=== PATIENT | female | born 1990 | race Caucasian/White ===

== ENCOUNTER 2017-08-19 09:20 | Emergency (ER) | payer OTHER, SELFPAY ==
[2017-08-19 09:25] VITALS: BP 126/80; PULSE 88; RESP 14; TEMP 37.1; O2SAT 97
[2017-08-19 09:36] VITALS: BP 107/71; PULSE 58; RESP 14; TEMP 36.4; O2SAT 97
--- NOTE | 2017-08-19 11:31 | ED_ITS ---
HPI - URI/Sore Throat General Chief Complaint: Upper Respiratory Symptoms Stated Complaint: STREP THROAT Time Seen by Provider: 08/19/17 11:30 Source: patient Mode of arrival: ambulatory Limitations: no limitations History of Present Illness HPI Narrative: Patient is a 27-year-old female who presents with a sore throat which started last night. She says it feels like strep she she gets strep once a year. She has not had any fever body aches. She denies cough. MD Complaint: sore throat Related Data Home Medications Medication Instructions Recorded Confirmed No Known Home Medications 08/19/17 08/19/17 Allergies Allergy/AdvReac Type Severity Reaction Status Date / Time hydrocortisone Allergy Intermediate Rash Verified 08/19/17 09:38 Sulfa (Sulfonamide Allergy Intermediate Rash Verified 08/19/17 09:38 Antibiotics) Review of Systems Review of Systems All systems reviewed & are unremarkable except as noted in HPI and below Constitutional Denies chills, Denies fever(s), Denies lethargy and Denies weakness ENT Ears, Nose, Mouth, and Throat: Denies change in voice, Denies neck pain and Reports sore throat Cardiovascular Denies chest pain, Denies irregular heart rhythm, Denies lightheadedness, Denies palpitations, Denies dyspnea, Denies dyspnea on exertion and Denies orthopnea Respiratory Denies cough, Denies dyspnea, Denies dyspnea on exertion and Denies wheezing Musculoskeletal Denies neck pain Integumentary/Breasts Denies pruritus, Denies erythema, Denies rash and Denies wounds Neurologic Denies weakness Endocrine Denies palpitations Allergic/Immunologic Denies wheezing [facility] Social History Smoking Status: Never smoker Exam Initial Vital Signs Initial Vital Signs: Vital Signs Temperature 98.7 F 08/19/17 09:25 Pulse Rate 88 08/19/17 09:25 Respiratory Rate 14 08/19/17 09:25 Blood Pressure 126/80 H 08/19/17 09:25 Pulse Oximetry 97 08/19/17 09:25 Const General: cooperative and well developed Nutritional Appearance: well nourished Orientation: alert, awake, oriented x3 and not confused HENMT Throat: posterior oropharynx normal, tonsils normal and uvula midline Neck Neck: normal visual inspection, trachea midline, No lymphadenopathy, No midline deformity and No JVD Lymphatic: No lymphedema Chest Chest: normal inspection of the chest Resp Effort & Inspection: normal respiratory effort, able to speak in complete sentences, no respiratory distress and no use of accessory muscles Auscultation: clear to auscultation bilaterally, no rales, no rhonchi and no wheezes Cardio Rate: regular rate Rhythm: regular rhythm Heart Sounds: no click, no gallops, no murmurs and no rubs Pulses: normal peripheral pulses Skin General: no rashes or lesions noted Neuro General: alert, awake and oriented x3 Course Vital Signs - 8 hr 08/19/17 09:25 08/19/17 09:36 Temperature 98.7 F 97.5 F L Pulse Rate 88 58 L Respiratory Rate 14 14 Blood Pressure 126/80 H 107/71 Pulse Oximetry 97 97 MDM - URI/Sore Throat Lab Data Strep negative Discharge Plan Departure Patient Disposition: Home, Self-Care Clinical Impression: Pharyngitis Discharge Date/Time: 08/19/17 11:39 Interventions: ED Discharge Assessment Last Done: 08/19/17 11:38 Instructions: Sore Throat, DI for Viral Pharyngitis Activity Restrictions/Additional Instructions: *You have been diagnosed with pharyngitis *What to do: At this time strep is negative, likely either viral or allergies, symptomatic control with oral lozenges *Take medications as directed *Follow up with your primary care provider in 2-3 days *Return to ER if you should have or any new, worsening or concerning symptoms Prescriptions: No Action No Known Home Medications RF: 0 Referrals: Rosales Najera MD [Non-Staff] -
== END 2017-08-19 11:39 | disposition home or self-care (01) ==
PROVIDERS: Emergency Provider Emergency Medicine
DX: J02.9 Acute pharyngitis, unspecified (principal)
CPT/HCPCS: 87880; 99282

== ENCOUNTER 2017-11-12 14:03 | Emergency (ER) | payer OTHER, SELFPAY ==
[2017-11-12 14:08] VITALS: BP 107/67; PULSE 53; RESP 16; TEMP 36.2; O2SAT 98; BMI 32.5
--- NOTE | 2017-11-12 15:14 | ED_ITS ---
HPI - Headache General Chief Complaint: Headache Stated Complaint: migrain since saturday,mouth numbing,r hand numbing Time Seen by Provider: 11/12/17 15:04 Source: patient Mode of arrival: ambulatory Limitations: no limitations History of Present Illness HPI Narrative: Patient otherwise healthy 29-year-old female here for evaluation of a headache. She states that it started on Saturday evening after eating dinner. She states that she had some sumatriptan left over from headaches that she has had in the past. The prescription was from 2015. She states she took a couple of those pills yesterday which only slightly helped her symptoms. She states that today the headache is in on the left side above her left eye. Has had occasional tingling in her hands. She states that occasionally is in her right hand occasionally in her left hand. She says it is from her wrist to her fingers. Not currently having those symptoms. She states that her headache feels like her prior headaches. Was not sudden onset. No fevers. No neck pain. Related Data Previous Rx's Medication Instructions Recorded epbomqmxch-jdlnbfbbeahli-jbnh 1 tab PO Q6H PRN #14 tab 11/12/17 Allergies Allergy/AdvReac Type Severity Reaction Status Date / Time hydrocortisone Allergy Intermediate Rash Verified 08/19/17 09:38 Sulfa (Sulfonamide Allergy Intermediate Rash Verified 08/19/17 09:38 Antibiotics) Review of Systems Constitutional Denies chills, Denies fever(s) and Reports headache(s) Eyes Denies blurry vision, Denies diplopia and Reports photophobia ENT Ears, Nose, Mouth, and Throat: Denies vertigo, Denies dizziness and Reports headache(s) Cardiovascular Denies chest pain and Denies dyspnea Respiratory Denies dyspnea Gastrointestinal Gastrointestinal: Denies abdominal pain Musculoskeletal Denies myalgias and Denies arthralgias Integumentary/Breasts Denies lesions and Denies rash Neurologic Denies vertigo, Denies dizziness and Reports headache(s) Hematologic/Lymphatic Denies easy bleeding and Denies easy bruising [facility] Medical History History of frequent headaches (Acute) Surgical History No pertinent past surgical history (Acute) Social History Smoking Status: Never smoker Exam Initial Vital Signs Initial Vital Signs: Vital Signs Temperature 97.1 F L 11/12/17 14:08 Pulse Rate 53 L 11/12/17 14:08 Respiratory Rate 16 11/12/17 14:08 Blood Pressure 107/67 11/12/17 14:08 Pulse Oximetry 98 11/12/17 14:08 Const General: cooperative, healthy appearing, comfortable, well developed, well groomed and No acute distress Orientation: alert, awake and oriented x3 HENMT Head: normal to inspection and normocephalic Eyes Pupils: PERRL EOM: EOM intact bilaterally Resp Effort & Inspection: normal respiratory effort Auscultation: clear to auscultation bilaterally Cardio Rate: regular rate Rhythm: regular rhythm Skin Lesions: no lesions Rashes: no rashes Neuro General: alert, awake and oriented x3 Cranial Nerves: CN's II-XI intact bilaterally Cognition: normal cognition Speech: speech normal Gait: normal gait Extrem General: normal to inspection and capillary refill normal Psych Appearance: grossly normal and well kempt Scores GCS [place] coma scale eye opening: Spontaneous Ave coma scale verbal response: Orientated [place] coma scale motor response: Obey commands [place] coma scale total score: 15 Course Orders Ordered: Discontinued Medications Acetaminophen (Tylenol) 975 mg PO NOW ONE Stop: 11/12/17 15:15 Last Admin: 11/12/17 15:41 Dose: 975 mg Diphenhydramine HCl (Benadryl) 25 mg IV NOW ONE Stop: 11/12/17 15:15 Last Admin: 11/12/17 15:42 Dose: 25 mg Sodium Chloride (Normal Saline 0.9%) 1,000 mls @ 1,000 mls/hr IV BOLUS ONE Stop: 11/12/17 16:13 Last Infusion: 11/12/17 17:22 Dose: 0 mls/hr Admin: 11/12/17 15:41 Dose: 1,000 mls/hr Ketorolac Tromethamine (Toradol) 30 mg IV NOW ONE Stop: 11/12/17 15:15 Last Admin: 11/12/17 15:42 Dose: 30 mg Metoclopramide HCl (Reglan) 10 mg IV NOW ONE Stop: 11/12/17 15:15 Last Admin: 11/12/17 15:42 Dose: 10 mg Vital Signs - 8 hr 11/12/17 14:08 11/12/17 16:02 11/12/17 17:18 Temperature 97.1 F L 97.2 F L Pulse Rate 53 L 62 52 L Respiratory Rate 16 12 12 Blood Pressure 107/67 114/68 Blood Pressure [Right Arm] 113/84 H Pulse Oximetry 98 100 100 MDM - Headache MDM Narrative Medical decision making narrative: Patient with a normal neurologic exam. Has had headaches like this in the past. Has no fevers. Low concern for meningitis. Was given IV medications here in the emergency department she states improved her head from an 8/10 to a 2/10. She was asking to go home after the medication. Will hold on further workup for now. History and physical exam not consistent with subarachnoid hemorrhage. Patient was given return precautions. She expressed understanding and agreement with plan. Discharge Plan Departure Patient Disposition: Home Clinical Impression: Headache Discharge Date/Time: 11/12/17 17:52 Interventions: ED Discharge Assessment Last Done: 11/12/17 17:18 Instructions: DI for Headache Activity Restrictions/Additional Instructions: Call your primary care doctor for a follow-up. Make sure your staying hydrated. Return to the emergency department for any new or worsening symptoms Prescriptions: New zvqvoowxmn-vhoekjnboryop-ksek 50-325-40 mg tablet 1 tab PO Q6H PRN (Reason: headache) Qty: 14 RF: 0
[2017-11-12] MEDS: SODIUM CHLORIDE 0.9% 1,000 ML 1000 ML IV (15:41)
[2017-11-12] MEDS: ACETAMINOPHEN 325 MG TABLET 975 MG PO (15:41)
[2017-11-12] MEDS: diphenhydrAMINE 50 MG/ML VIAL 25 MG IV (15:42)
[2017-11-12] MEDS: KETOROLAC 60 MG/2 ML VIAL 30 MG IV (15:42)
[2017-11-12] MEDS: METOCLOPRAMIDE 10 MG/2 ML INJ IV (15:42)
[2017-11-12 16:02] VITALS: BP 113/84; PULSE 62; RESP 12; O2SAT 100
[2017-11-12 17:18] VITALS: BP 114/68; PULSE 52; RESP 12; TEMP 36.2; O2SAT 100
--- NOTE | 2017-11-12 17:30 | PC.NURSE ---
pt dc ambultory states meds helped/ pain 05/04 refused wc for dc/ at side. will follow up
== END 2017-11-12 17:52 | disposition home or self-care (01) ==
PROVIDERS: Emergency Provider Emergency Medicine
DX: R51 Headache (principal)
CPT/HCPCS: 36591; 96361; 96374; 96375; 99283; 99284; J1200; J1885; J2765

== ENCOUNTER → 2020-06-27 09:08 | Outpatient (CLI) | payer OTHER, SELFPAY ==
[2020-06-27 09:39] LABS: Add Manual Diff / Slide Review NO; Basophils Absolute Auto 0 /uL (0-100); Basophils Percent Auto 0.8 % (0-2); Eosinophils Absolute Auto 200 /uL (0-450); Eosinophils Percent Auto 3.6 % (2-4); Hematocrit 40.4 % (36-46); Hemoglobin 13.4 g/dL (12.0-16.0); Lymphocytes Absolute Auto 2000 /uL (1100-4500); Lymphocytes Percent Auto 35.4 % (25-40); Mean Corpuscular HGB Conc 33.3 % (30-36); Mean Corpuscular Hemoglobin 30.3 PG (26-34); Monocytes Absolute Auto 500 /uL (0-900); Neutrophils Absolute Auto 3000 /uL (1500-7000); Neutrophils Percent Auto 51.2 % (50-75); Platelet Count 223 X10^3/uL (150-400); Red Blood Cell Count 4.44 X10^6/uL (4.0-5.2); Red Cell Distribution Width 13.1 % (11.6-14.8); White Blood Cell Count 5.8 X10^3/uL (4.5-11.0)
[2020-06-27 10:03] LABS: BUN Creatinine Ratio 18.8 (6-22); Blood Urea Nitrogen 15 mg/dL (7-17); Calcium 9.5 mg/dL (8.4-10.2); Carbon Dioxide 25 mmol/L (22-32); Chloride 108 mmol/L (98-107); Estimated Glomerular Filt Rate > 60.0 mL/min (>60); Glucose 99 mg/dL (70-100); HEMOLYSIS < 15 (0-50); Magnesium 2.1 mg/dL (1.6-2.3); Potassium 4.2 mmol/L (3.4-5.1); Sodium 141 mmol/L (137-145)
[2020-06-27 11:02] LABS: TSH w/ Reflex to FT4 1.39 uIU/mL (0.47-4.68)
== END ==
PROVIDERS: PCP Registered Nurse Diabetes Educator; Referring Provider Registered Nurse Diabetes Educator; Visit Provider Registered Nurse Diabetes Educator
DX: R00.2 Palpitations (principal); R94.31 Abnormal electrocardiogram [ECG] [EKG]
CPT/HCPCS: 36415; 80048; 83735; 84443; 85025

== ENCOUNTER → 2020-07-11 10:25 | Outpatient (CLI) | payer OTHER, SELFPAY ==
--- NOTE | 2020-07-29 07:07 | PM.CARDMON.1 ---
Electronic Health Records Specialist Report Referral & Results Date Patient Seen: 07/11/20 Requesting provider: Myke Lorenzana Indication: Palpitations Duration of monitoring (days): 4 Diary information: There were 5 patient triggered events and 3 patient diary entries Patient triggered events were associated with (within 45 seconds) sinus rhythm, PVCs, and PACs Patient diary events were associated with (within 45 seconds) sinus rhythm, PVCs, and ventricular bigeminy Data: Minimum heart rate identified was 40 beats per minute at 03:11 on 07/13/2020 Maximum sinus heart rate was 150 beats per minute at 19:15 on 07/13/2020 Maximum overall heart rate was 162 beats per minute at 23:52 on 07/11/2020 during a run of SVT Less than 1% of identified beats were ventricular or supraventricular ectopic in origin, which would classify them as rare. 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 Patient's symptoms palpitations might be due to ventricular ectopy although patient also has supraventricular ectopy that was connected with patient events, as above. No serious dysrhythmias identified on this study
== END ==
PROVIDERS: PCP Registered Nurse Diabetes Educator; Referring Provider Registered Nurse Diabetes Educator; Visit Provider Registered Nurse Diabetes Educator
DX: R00.2 Palpitations (principal)
CPT/HCPCS: 93242; 93244

== ENCOUNTER → 2020-12-12 08:33 | Outpatient (CLI) | payer OTHER, SELFPAY ==
--- NOTE | 2020-12-12 | DI.ECHO.S_ITS ---
[place] [facility]---------+ [facility] +---------+ : : [address] : : : : [id number] : : : : Phone: [phone] Echocardiogram Report + + :Name: MAURICE SANCHEZ Study Date: 12/12/2020 Height: 64 in : :[facility] ReadingLocation: Weight: 175 lb : : Gender: Female BSA: 1.8 m2 : :: 1990 Age: 30 yrs BP: 143/90 mmHg: :Reason For Study: Syncope : :Ordering Physician: RICHARD, : :LATASHA Biswas Performed By: Jordy Ragsdale : :Referring: LATASHA BECERRA : + + Interpretation Summary The ejection fraction is estimated to be 55-60%. Normal diastolic function. The right ventricle is normal in size and function. There is mild mitral regurgitation. Unable to estimate PASP. Procedure: A two-dimensional transthoracic echocardiogram with color flow and Doppler was performed. The study quality was technically adequate. There is no prior echocardiogram noted for this patient. Left Ventricle: The left ventricle is normal in size and wall thickness. Left ventricular systolic function is normal. The ejection fraction is estimated to be 55-60%. There are no focal wall motion abnormalities. Diastolic parameters suggest probable normal left ventricular diastolic function and normal filling pressures. Right Ventricle: The right ventricle is normal in size and function. Atria: Both atria are normal in size. There is no Doppler evidence for an interatrial shunt. Mitral Valve: The mitral valve is normal. There is mild mitral regurgitation. Aortic Valve: The aortic valve opens well. No aortic regurgitation is present. Tricuspid Valve: The tricuspid valve is normal in structure and function. There is trace tricuspid regurgitation. Pulmonary artery pressures cannot be estimated because of the lack of a measurable TR jet velocity but the IVC suggests a CVP of around 8 mmHg. Pulmonic Valve: The pulmonic valve is normal in structure and function. There is mild pulmonic regurgitation. Great Vessels: The aortic root is normal size. The dimensions of the ascending aorta are normal. The IVC is of normal diameter and collapses less than 50% with a sniff. This suggests a right atrial pressure of 8 mm Hg. Pericardium/ Pleura There is no pericardial effusion. There is no pleural effusion. MMode/2D Measurements & Calculations LVIDd: 5.1 cm LVOT diam: 1.9 cm LVIDs: 3.3 cm Ao root diam: 2.7 cm FS: 35.3 % asc Aorta Diam: 2.5 cm IVSd: 0.80 cm LVPWd: 0.70 cm LV elizabeth. diameter/BSA (cm/m^2): 2.8 LV sys. diameter/BSA (cm/m^2): 1.8 LA dimension: 3.3 cm RA long axis: 4.6 cm LA A2 area: 17.5 cm2 LA A4 area: 16.7 cm2 LA length (vol): 5.6 cm LA vol: 44.7 ml LA vol index: 24.2 ml/m2 LVLs ap4: 6.5 cm LVLd ap2: 7.9 cm LVLs ap2: 6.4 cm TAPSE_phl: 2.9 cm Doppler Measurements & Calculations Ao V2 max: 152.0 cm/sec LVOT Max Danish: 126.0 cm/sec Ao V2 mean: 103.0 cm/sec LV V1 max P.4 mmHg Ao max P.0 mmHg LV V1 VTI: 28.5 cm Ao mean P.0 mmHg CHENG(I,D): 2.4 cm2 Ao V2 VTI: 33.0 cm CHENG(V,D): 2.4 cm2 sev ratio: 0.86 CHENG indexed to BSA (cm^2/m^2): 1.3 MV E max danish: 68.1 cm/sec PA V2 max: 108.0 cm/sec MV A max danish: 35.6 cm/sec PA V2 mean: 76.0 cm/sec MV E/A: 1.9 PA mean P.0 mmHg Med Peak E' Danish: 13.2 cm/sec PA pr(Accel): -2.9 mmHg E/E' med: 5.2 Lat Peak E' Danish: 20.3 cm/sec E/E' lat: 3.4 E/e' average: 4.3 MV dec time: 0.27 sec SV(LVOT): 80.8 ml AV VR_phl: 0.83 CHENG(VTI)/BSA_phl: 1.3 MV P1/2t-pr_phl: 79.0 msec Reading Physician:04:11 PM
== END ==
PROVIDERS: PCP Registered Nurse Diabetes Educator; Referring Provider Internal Medicine Cardiovascular Disease; Visit Provider Internal Medicine Cardiovascular Disease
DX: R00.2 Palpitations (principal); R55 Syncope and collapse; I34.0 Nonrheumatic mitral (valve) insufficiency
CPT/HCPCS: 93306

== ENCOUNTER 2021-11-07 07:08 | Emergency (ER) | payer OTHER, SELFPAY ==
[2021-11-07 07:19] VITALS: BP 113/65; PULSE 53; RESP 19; TEMP 36.9; O2SAT 99; BMI 30.4
--- NOTE | 2021-11-07 07:38 | ED_ITS ---
HPI - Allergic Reaction General Chief complaint: Allergic Reaction Stated complaint: Swollen face and rash spreading down her neck Time Seen by Provider: 11/07/21 07:14 Source: patient Mode of arrival: Ambulatory History of Present Illness HPI narrative: 31-year-old woman with no significant medical history presents with increasing facial rash and periorbital edema. She notes that she has not done anything significantly unusual or used any new medications or foods. On the she was outside all day long has never had difficulties with seasonal allergies. Her photolettering machine operator who recommended new Neutrogena hydro sport sunscreen which she religiously applied all day as well as wearing a hat and son covering. She noted some increasing itching and erythema and yesterday took Xyzal in the morning Claritin in the afternoon Benadryl in the evening you some calamine lotion to help with the itch and woke up this morning with increasing symptoms over her face neck and upper chest in a sun-exposed distribution. She describes no wheezing, cough, dyspnea, abdominal pain, headache, vomiting, diarrhea. She has no other skin involvement Related Data Previous Rx's Medication Instructions Recorded levonorgestrel-ethinyl estradiol 1 tab PO DAILY #84 tabs 06/08/21 0.1 mg-20 mcg tablet (Lutera (28)) Allergies Allergy/AdvReac Type Severity Reaction Status Date / Time hydrocortisone Allergy Intermediate Rash Verified 06/08/21 13:47 Sulfa (Sulfonamide Allergy Intermediate Rash Verified 06/08/21 13:47 Antibiotics) Review of Systems Review of Systems Narrative: Remainder of complete review of systems is otherwise unremarkable except for that included in the HPI. Patient History Medical History Abnormal Pap smear of cervix (~2005) Chicken pox Eczema History of frequent headaches History of melanoma Psoriasis Shortened NC interval Surgical History Anesthesia History of nasal surgery (~2011) No pertinent past surgical history Family History Father Diabetes mellitus Hypertension Hyperlipidemia Grandfather Lung cancer Brain cancer Diabetes mellitus Hypertension Hyperlipidemia Stroke Grandmother Cancer Social History Smoking Status: Former smoker Smoking Status: Former smoker alcohol intake frequency: 0-2 drinks per day Substance Use Type: does not use Exam Initial Vital Signs Initial Vital Signs: Vital Signs Temperature 98.5 F 11/07/21 07:19 Pulse Rate 53 L 11/07/21 07:19 Respiratory Rate 19 11/07/21 07:19 Blood Pressure 113/65 11/07/21 07:19 Pulse Oximetry 99 11/07/21 07:19 Oxygen Delivery Method 11/07/21 07:19 General: Healthy appearing, in no acute distress. Able to give a complete and coherent history. Well-nourished well-developed HEENT: Moist mucous membranes, normal sclera with reactive pupils, swelling around both eyes without significant erythema Neck: No cervical adenopathy, supple Respiratory: Lungs are clear to auscultation, no wheezing no rales no rhonchi. Full and symmetrical air movement Cardiac: Regular rate and rhythm no murmurs no bruits Abdomen: Soft, nontender, good bowel tones, no flank pain Skin: Erythematous, dry rash over her forehead nose and upper cheeks. No vesicles, no petechiae and no purpura. Eyes are somewhat puffy no other skin findings Neurologic: Grossly neurologically intact with no obvious asymmetries or abnormalities Extremities: No trauma, well perfused Psych: Cooperative, appropriate insight and affect Course Orders Ordered: ED Orders 11/07/21 07:20 EKG-12 Lead Stat Vital Signs Vital signs: Vital Signs - 8 hr 11/07/21 07:19 Temperature 98.5 F Pulse Rate 53 L Respiratory Rate 19 Blood Pressure 113/65 Pulse Oximetry 99 Oxygen Delivery Method Room Air MDM - Allergic Reaction MDM Narrative Medical decision making narrative: 31-year-old woman presents with what appears to be an allergic reaction and sun- exposed areas of her face. Of note she is been very careful to keep the remainder of her body covered because of a history of precancerous skin findings. With the new exposure to the [employer] sport I suspect that there is some component of that to which she is sensitive. She also notes that she is sensitive to topical hydrocortisone. The reaction may be to 1 of the carriers are emollients in these topical solutions. There is no evidence of anaphylaxis or pulmonary involvement. She is given 60 mg of prednisone as a single dose in the emergency department will have her continue 1 of the wezf-azf-cyuiiyb nonsedating antihistamines and Benadryl as needed at night for sleep. Reviewed anticipated course of resolution and she is safe for home discharge Discharge Plan Departure Patient Disposition: Home Clinical Impression: Allergic reaction Instructions: DI for Adverse Drug Reaction -- Allergic Activity Restrictions/Additional Instructions: Thank you for coming in today I do think that this is not allergic reaction and the most likely culprit is the new sunscreen that you tried. Given that you are also allergic to topical hydrocortisone, there may be some inactive product in both of these creams that is causing your reaction. It may be worth comparing the list of ingredients between the 2 and see if there is a common 1 that might be the culprit. In the meantime, I have given you a single large dose of steroid in the emergen cy department that will help significantly. It is common to continue to have mild symptoms for up to a week after initial exposure. Although Neutrogena [employer] sport is a fabulous product, I would recommend not using it again. Please continue 1 of the nonsedating antihistamines such as the Xyzal or Claritin and if your having itching or difficulty sleeping it is okay to also add Benadryl. I would expect her symptoms to continue to improve over the next 3-4 days If you find that you are getting worse or develop any new symptoms, please feel free to return to the emergency department for further evaluation. Prescriptions: No Action levonorgestrel-ethinyl estrad [Lutera (28)] 0.1-20 mg-mcg tablet 1 tab PO DAILY Qty: 84 3RF Referrals: Myke Lorenzana ARNP [Primary Care Provider] -
[2021-11-07] MEDS: predniSONE 20 MG TABLET 60 MG PO (08:10)
[2021-11-07 08:15] VITALS: BP 115/68; PULSE 84; RESP 17; O2SAT 99
== END 2021-11-07 08:16 | disposition home or self-care (01) ==
PROVIDERS: Emergency Provider Emergency Medicine; PCP Registered Nurse Diabetes Educator
DX: T78.40XA Allergy, unspecified, initial encounter (principal); R22.0 Localized swelling, mass and lump, head
CPT/HCPCS: 93005; 93010; 99283

== ENCOUNTER → 2022-04-05 07:11 | Outpatient (CLI) | payer OTHER, SELFPAY ==
[2022-04-05 08:26] LABS: Hematocrit 38.7 % (36-46); Hemoglobin 13.1 g/dL (12.0-16.0); Mean Corpuscular HGB Conc 33.7 % (30-36); Mean Corpuscular Hemoglobin 30.5 PG (26-34); Mean Corpuscular Volume 90.4 fL (80-100); Platelet Count 202 X10^3/uL (150-400); Red Blood Cell Count 4.28 X10^6/uL (4.0-5.2); Red Cell Distribution Width 12.8 % (11.6-14.8); White Blood Cell Count 5.8 X10^3/uL (4.5-11.0)
[2022-04-05 08:46] LABS: Alanine Aminotransferase 31 IU/L (<35); Albumin 4.4 g/dL (3.5-5.0); Albumin Globulin Ratio 1.3 (1.0-2.8); Alkaline Phosphatase 53 U/L (38-126); Aspartate Aminotransferase 26 IU/L (14-36); BUN Creatinine Ratio 19.7 (6-22); Bilirubin Total 2.1 mg/dL (0.2-1.3); Blood Urea Nitrogen 14 mg/dL (7-17); Calcium 8.8 mg/dL (8.4-10.2); Carbon Dioxide 24 mmol/L (22-32); Chloride 104 mmol/L (98-107); Cholesterol 171 mg/dL (140-199); Estimated Glomerular Filt Rate > 60 mL/min (>60); Globulin 3.3 g/dL (1.7-4.1); Glucose 99 mg/dL (70-100); HDL Cholesterol 55 mg/dL (40-60); HEMOLYSIS < 15 (0-50); LDL Cholesterol Calculated 96 mg/dL (<100); Potassium 4.1 mmol/L (3.4-5.1); Sodium 141 mmol/L (137-145); Total Protein 7.7 g/dL (6.3-8.2); Triglycerides 98 mg/dL (35-150)
[2022-04-05 09:19] LABS: TSH w/ Reflex to FT4 1.71 uIU/mL (0.47-4.68)
== END ==
PROVIDERS: PCP Registered Nurse Diabetes Educator; Referring Provider Registered Nurse Diabetes Educator; Visit Provider Registered Nurse Diabetes Educator
DX: R94.31 Abnormal electrocardiogram [ECG] [EKG] (principal); Z85.820 Personal history of malignant melanoma of skin
CPT/HCPCS: 36415; 80053; 80061; 84439; 84443; 85027

== ENCOUNTER 2022-05-22 11:36 | Day surgery (SDC) | payer OTHER, SELFPAY ==
[2022-05-22 12:07] VITALS: BMI 28.7
[2022-05-22 12:19] VITALS: BP 115/70; PULSE 59; RESP 18; TEMP 36.6; O2SAT 100
[2022-05-22] MEDS: LACTATED RINGERS 1,000 ML 200 ML IV (12:20)
--- NOTE | 2022-05-22 13:04 | PM.PREOP ---
Pre-operative Note Interval Note History & Physical reviewed/Exam performed by Physician: Yes Changes to H&P: No
[2022-05-22 13:58] VITALS: BP 95/62; PULSE 56; RESP 16; TEMP 36.7; O2SAT 99
[2022-05-22 14:02] VITALS: BP 102/68; PULSE 55; RESP 16; O2SAT 99
[2022-05-22 14:08] VITALS: BP 101/66; PULSE 47; RESP 16; O2SAT 100
[2022-05-22 14:12] VITALS: BP 105/68; PULSE 48; RESP 16; TEMP 35.8; O2SAT 100
--- NOTE | 2022-05-22 15:03 | PM.OP.COLON ---
Operative Date/Time/Diagnoses Date of procedure: 05/22/22 Time of procedure: 15:03 Pre-op diagnosis: Rectal bleeding Post-op diagnosis: other (Hemorrhoids) Procedure & Clinicians Study performed: Colonoscopy and hemorrhoidal banding x2 Same procedure as scheduled: Yes Indications: 31-year-old woman with rectal bleeding here for colonoscopy and possible hemorrhoidal banding Surgeon: Myron James Procedure Notes Procedure in detail: The history and physical was performed/updated and the patient is ASA class is 1. The procedure was discussed in detail with the patient. Potential risks complications including infection, bleeding, missed diagnosis, perforation, need for surgery, and were explained. Their questions were answered and informed consent was obtained. Patient was brought to the procedure room and placed standard monitoring equipment. The patient's vital signs were monitored continuously throughout the entire procedure. Prior to starting time-out was performed. The patient was placed in the left lateral recumbent position. Procedural sedation was administered by anesthesia. Examination began with a thorough inspection of the perianal area there was no evidence of fissures, fistulae, external hemorrhoids or cutaneous malignancy. The colonoscopy scope was then placed into the anal canal and was advanced to the cecum, which was identified by the ileocecal valve, the appendiceal orifice and the confluence of the taenia. The scope was then slowly withdrawn examining colon thoroughly in all directions, irrigating it of any residual stool. Normal healthy colon. No masses polyps or inflammation. Retroflexion within the rectum demonstrated grade 1-2 internal hemorrhoids. Following completion of the colonoscopy an anoscope was inserted. The right posterior and left lateral hemorrhoidal pedicles were grasped with the hemorrhoidal wind turbine electrical engineer using suction and then doubly ligated at their base. The patient tolerated the procedure well. They will be discharged once criteria are met. The prep was of good/excellent quality. The withdrawl time was 8 minutes. Specimen(s): none sent Complications: none Impression: Normal colonoscopy Post-procedure Recommendations: High fiber diet Plan for aftercare: Avoidance of straining. Qszh-hjg-oldtweb medication for pain control. Sitz bath once daily Disposition: same day surgery
== END 2022-05-22 14:35 | disposition home or self-care (01) ==
PROVIDERS: PCP Registered Nurse Diabetes Educator; Referring Provider Surgery; Visit Provider Surgery
PROC: 0DJD8ZZ Inspection of Lower Intestinal Tract, Via Natural or Artificial Opening Endoscopic (ICD-10-PCS; CPT 45378; principal; 2022-05-22 12:45)
DX: K62.5 Hemorrhage of anus and rectum (principal); K64.1 Second degree hemorrhoids
CPT/HCPCS: 46221; 45378; J2704

== ENCOUNTER → 2025-01-18 13:16 | Outpatient (CLI) | payer OTHER, SELFPAY | PROVIDERS: Family Provider Family Medicine; PCP Family Medicine; Visit Provider Nurse Practitioner Family | DX: S01.302A Unspecified open wound of left ear, initial encounter (principal) | CPT/HCPCS: 87070; 87075; 87077; 87147; 87205 ==